=== PATIENT | male | born 1945 | race African-American/Black ===

== ENCOUNTER → 2017-01-17 | Outpatient (CLI) | payer MEDICARE, MEDICAID ==
[~2017-01-17] MED LIST: ASPI81 PO; LISI-661 PO; SIMV-260 PO
== END | disposition home or self-care (01) ==
LOC: RADPV 11:30
PROVIDERS: ATTEND Internal Medicine
DX: I70.0 Atherosclerosis of aorta (principal)
CPT/HCPCS: 71020

== ENCOUNTER → 2017-01-27 | Outpatient (CLI) | payer MEDICARE, MEDICAID | END | disposition home or self-care (01) | LOC: RADPV 15:21 | PROVIDERS: ATTEND Internal Medicine | DX: I35.8 Other nonrheumatic aortic valve disorders (principal) | CPT/HCPCS: 93306 ==

== ENCOUNTER → 2017-02-05 | Outpatient (CLI) | payer MEDICARE, MEDICAID | END | disposition home or self-care (01) | LOC: RADPV 14:12 | PROVIDERS: ATTEND Internal Medicine | DX: M47.812 Spondylosis without myelopathy or radiculopathy, cervical region (principal) | CPT/HCPCS: 72040 ==

== ENCOUNTER 2018-11-15 17:58 | Inpatient (IN) | payer MEDICAID, MEDICARE ==
[~2018-11-15] VITALS: Ht 177.8 cm; Wt 66.5 kg
[2018-11-15 18:24] LABS: BASOPHILS % (AUTO) 0.3 % (0.0-2.0); EOSINOPHILS % (AUTO) 2.4 % (1.0-6.0); HEMATOCRIT 34.8 % (41-53); LYMPHOCYTES # (AUTO) 1.8 K/uL (1.0-4.8); LYMPHOCYTES % (AUTO) 30.3 % (22.0-44.0); MEAN CORPUSCULAR HEMOGLOBIN 28.7 pg (26.0-34.0); MEAN CORPUSCULAR HGB CONC 31.7 G/dL (31.0-37.0); MEAN CORPUSCULAR VOLUME 91 fL (80-100); MONOCYTES # (AUTO) 0.4 K/uL (0.1-1.0); MONOCYTES % (AUTO) 7.6 % (2.0-9.0); NEUTROPHILS # (AUTO) 3.5 K/uL (1.8-7.7); NEUTROPHILS % (AUTO) 59.4 % (40.0-70.0); PLATELET COUNT (AUTO) 125 K/uL (150-450); RED BLOOD CELL COUNT(AUTO) 3.84 MIL/uL (4.50-5.90); RED CELL DISTRIBUTION WIDTH 12.5 % (11.5-14.5)
[2018-11-15 18:36] LABS: PROTHROMBIN TIME 10.3 SEC (9.4-11.6)
[2018-11-15] MEDS ORDERED: SODIUM CHLORIDE 0.9% 1,000 ML IV ONE (18:45)
[2018-11-15] MEDS ORDERED: ASPIRIN 325 MG TABLET PO ONE (18:45)
[2018-11-15 18:50] LABS: B-TYPE NATRIURETIC PEPTIDE 119 pg/mL (0-100)
[2018-11-15 18:58] LABS: ALANINE AMINOTRANSFERASE 14 U/L (12-78); ALBUMIN 3.6 g/dL (3.4-5.0); ALKALINE PHOSPHATASE 82 U/L (46-116); ANION GAP 6 mmol/L (8-16); ASPARTATE AMINOTRANSFERASE 16 U/L (15-37); BILIRUBIN,TOTAL 0.5 mg/dL (0.1-1.0); CALCIUM, TOTAL 9.2 mg/dL (8.8-10.5); CARBON DIOXIDE 30 mmol/L (22-29); CHLORIDE 106 mmol/L (98-107); CREATINE KINASE, TOTAL ONLY 80 U/L (39-308); CREATININE 1.39 mg/dL (0.60-1.30); FREE T4 (FREE THYROXINE) 1.01 ng/dL (0.76-1.46); GLUCOSE,RANDOM 79 mg/dL (70-110); POTASSIUM 3.5 mmol/L (3.5-5.1); SODIUM SERUM 142 mmol/L (136-145); THYROID STIMULATING HORMONE 1.22 uIU/mL (0.36-3.74); TOTAL PROTEIN, SERUM 7.4 g/dL (6.4-8.2)
[2018-11-15 19:02] LABS: GLOMERULAR FILTR. RATE CALC > 60 mL/min (>60)
[2018-11-15 19:17] LABS: UREA NITROGEN, BLOOD 17 mg/dL (7-18)
[2018-11-15 19:39] LABS: APPEARANCE,URINE CLEAR (CLEAR); BILIRUBIN,URINE NEGATIVE (NEGATIVE); GLUCOSE, URINE (UA) NEGATIVE (NEGATIVE); KETONES,URINE NEGATIVE (NEGATIVE); LEUKOCYTE ESTERASE ,URINE SMALL (NEGATIVE); NITRATE,URINE NEGATIVE (NEGATIVE); OCCULT BLOOD,URINE SMALL (NEGATIVE); PH,URINE 6.5 (5.0-8.0); PROTEIN,URINE NEGATIVE (NEGATIVE)
[2018-11-15] MEDS ORDERED: ONDANSETRON HCL 4 MG/2 ML VIAL IVP PRN ×2 (19:45→22:15)
[2018-11-15] MEDS ORDERED: 0.9% SODIUM CHLORIDE 10 ML SYRINGE IVP PRN ×2 (19:45→22:15)
[2018-11-15] MEDS ORDERED: ACETAMINOPHEN 325 MG TABLET PO PRN (19:45)
[2018-11-15 19:46] LABS: WBC,URINE 26-50 /HPF (0-5)
[2018-11-15 19:47] LABS: BACTERIA,URINE Few /HPF (None Seen); SQUAMOUS EPITHELIAL CELL,UR Few /LPF (None Seen)
[2018-11-15 20:04] LABS: AMPHET/METH SCREEN,URINE NEGATIVE (NEGATIVE); BARBITURATE SCREEN, URINE NEGATIVE (NEGATIVE); BENZODIAZEPINES SCREEN,URINE NEGATIVE (NEGATIVE); CANNABINOID SCREEN,URINE NEGATIVE (NEGATIVE); COCAINE SCREEN,URINE NEGATIVE (NEGATIVE); METHADONE SCREEN, URINE NEGATIVE (NEGATIVE); OPIATE SCREEN,URINE NEGATIVE (NEGATIVE); PHENCYCLIDINE SCREEN,URINE NEGATIVE (NEGATIVE)
[2018-11-15] MEDS: METOPROLOL TARTRATE 25 MG TABLET PO SCH (22:25)
[2018-11-15 22:40] VITALS: BP 185/70
[2018-11-15 23:21] VITALS: BP 152/68
[2018-11-16] MEDS ORDERED: DORZ10DR18 OU (01:20)
[2018-11-16] MEDS ORDERED: LATA7.5D OU (01:20)
[2018-11-16 05:15] VITALS: BP 155/62
[2018-11-16 05:42] LABS: BASOPHILS % (AUTO) 0.4 % (0.0-2.0); EOSINOPHILS % (AUTO) 3.4 % (1.0-6.0); HEMATOCRIT 29.6 % (41-53); HEMOGLOBIN 9.6 g/dL (13.5-17.5); LYMPHOCYTES # (AUTO) 1.9 K/uL (1.0-4.8); LYMPHOCYTES % (AUTO) 37.4 % (22.0-44.0); MEAN CORPUSCULAR HEMOGLOBIN 29.2 pg (26.0-34.0); MEAN CORPUSCULAR HGB CONC 32.3 G/dL (31.0-37.0); MEAN CORPUSCULAR VOLUME 90 fL (80-100); MONOCYTES # (AUTO) 0.4 K/uL (0.1-1.0); MONOCYTES % (AUTO) 7.6 % (2.0-9.0); NEUTROPHILS # (AUTO) 2.5 K/uL (1.8-7.7); NEUTROPHILS % (AUTO) 51.2 % (40.0-70.0); RED BLOOD CELL COUNT(AUTO) 3.27 MIL/uL (4.50-5.90); RED CELL DISTRIBUTION WIDTH 12.4 % (11.5-14.5)
[2018-11-16 06:03] LABS: ALANINE AMINOTRANSFERASE 12 U/L (12-78); ALBUMIN 2.9 g/dL (3.4-5.0); ALKALINE PHOSPHATASE 70 U/L (46-116); ANION GAP 5 mmol/L (8-16); ASPARTATE AMINOTRANSFERASE 14 U/L (15-37); BILIRUBIN,TOTAL 0.4 mg/dL (0.1-1.0); CALCIUM, TOTAL 8.4 mg/dL (8.8-10.5); CARBON DIOXIDE 28 mmol/L (22-29); CHLORIDE 109 mmol/L (98-107); CHOL/HDL RATIO 2.6 (4.2-7.3); CHOLESTEROL 118 mg/dL (131-200); CREATININE 1.21 mg/dL (0.60-1.30); GLUCOSE,RANDOM 91 mg/dL (70-110); HDL CHOLESTEROL 45 mg/dL (40-60); LDL CHOL (CALC.) 62 mg/dL (0-130); SODIUM SERUM 142 mmol/L (136-145); THYROID STIMULATING HORMONE 1.26 uIU/mL (0.36-3.74); TRIGLYCERIDES 57 mg/dL (15-150); UREA NITROGEN, BLOOD 18 mg/dL (7-18)
[2018-11-16 06:04] LABS: PLATELET COUNT (AUTO) 96 K/uL (150-450)
[2018-11-16 06:07] LABS: GLOMERULAR FILTR. RATE CALC > 60 mL/min (>60)
[2018-11-16] MEDS ORDERED: BRIM15DR2 OU (06:50)
[2018-11-16] MEDS ORDERED: HEPARIN SODIUM 25000 UNITS/D5W 250 ML IV PRN (07:54)
[2018-11-16 07:59] VITALS: BP 136/55
[2018-11-16] MEDS ORDERED: HEPARIN SODIUM,PORCINE 5,000 UNITS/ML VIAL IVP PRN ×2 (08:00)
[2018-11-16] MEDS ORDERED: HEPARIN SODIUM,PORCINE 5,000 UNITS/ML VIAL IVP ONE (08:00)
[2018-11-16 08:33] LABS: BASOPHILS % (AUTO) 0.4 % (0.0-2.0); EOSINOPHILS % (AUTO) 3.5 % (1.0-6.0); HEMATOCRIT 31.4 % (41-53); LYMPHOCYTES # (AUTO) 1.5 K/uL (1.0-4.8); LYMPHOCYTES % (AUTO) 32.2 % (22.0-44.0); MEAN CORPUSCULAR HGB CONC 31.9 G/dL (31.0-37.0); MEAN CORPUSCULAR VOLUME 91 fL (80-100); MONOCYTES # (AUTO) 0.3 K/uL (0.1-1.0); MONOCYTES % (AUTO) 6.8 % (2.0-9.0); NEUTROPHILS # (AUTO) 2.7 K/uL (1.8-7.7); NEUTROPHILS % (AUTO) 57.1 % (40.0-70.0); PLATELET COUNT (AUTO) 101 K/uL (150-450); RED BLOOD CELL COUNT(AUTO) 3.46 MIL/uL (4.50-5.90); RED CELL DISTRIBUTION WIDTH 12.4 % (11.5-14.5)
[2018-11-16 08:44] LABS: PROTHROMBIN TIME 10.3 SEC (9.4-11.6)
[2018-11-16] MEDS: SIMVASTATIN 20 MG TABLET PO SCH (08:46)
[2018-11-16] MEDS: PANTOPRAZOLE SODIUM 40 MG DR TABLET PO SCH (08:48)
[2018-11-16] MEDS: ASPIRIN 81 MG CHEWABLE TABLET PO SCH (08:48)
[2018-11-16] MEDS: METOPROLOL TARTRATE 25 MG TABLET PO SCH ×2 (08:48→22:05)
[2018-11-16] MEDS: BRIMONIDINE TARTRATE 0.1% 5 ML OPHTHALMIC SOLUTION OU SCH ×3 (08:49→22:07)
[2018-11-16] MEDS ORDERED: ENOXAPARIN SODIUM 40 MG/0.4 ML PF SYRINGE SQ SCH (09:00)
[2018-11-16] MEDS: LISINOPRIL 5 MG TABLET PO SCH (09:00)
[2018-11-16 11:46] VITALS: BP 132/58
[2018-11-16] MEDS: DORZOLAMIDE HCL 2% 10 ML OPHTHALMIC SOLUTION OU SCH ×2 (12:57→22:07)
[2018-11-16 15:28] VITALS: BP 129/57
[2018-11-16 19:47] VITALS: BP 146/64
[2018-11-16] MEDS: LATANOPROST 0.005% 2.5 ML OPHTHALMIC SOLUTION OU SCH (22:07)
[2018-11-16] MEDS: HydrALAZINE HCL 20 MG/ML VIAL IVP PRN (23:52)
[2018-11-17] VITALS (7 sets, daily range): BP systolic 107–161; BP diastolic 49–79
[2018-11-17 06:34] LABS: ANION GAP 4 mmol/L (8-16); CALCIUM, TOTAL 9.2 mg/dL (8.8-10.5); CARBON DIOXIDE 29 mmol/L (22-29); CHLORIDE 105 mmol/L (98-107); CREATINE KINASE, TOTAL ONLY 61 U/L (39-308); CREATININE 1.24 mg/dL (0.60-1.30); GLUCOSE,RANDOM 89 mg/dL (70-110); SODIUM SERUM 138 mmol/L (136-145); UREA NITROGEN, BLOOD 18 mg/dL (7-18)
[2018-11-17 06:35] LABS: GLOMERULAR FILTR. RATE CALC > 60 mL/min (>60)
[2018-11-17 06:42] LABS: B-TYPE NATRIURETIC PEPTIDE 225 pg/mL (0-100)
[2018-11-17] MEDS: DORZOLAMIDE HCL 2% 10 ML OPHTHALMIC SOLUTION OU SCH ×2 (07:54→21:48)
[2018-11-17] MEDS: LISINOPRIL 5 MG TABLET PO SCH (07:54)
[2018-11-17] MEDS: PANTOPRAZOLE SODIUM 40 MG DR TABLET PO SCH (07:54)
[2018-11-17] MEDS: SIMVASTATIN 20 MG TABLET PO SCH (07:55)
[2018-11-17] MEDS: METOPROLOL TARTRATE 25 MG TABLET PO SCH ×2 (07:55→21:47)
[2018-11-17] MEDS: ASPIRIN 81 MG CHEWABLE TABLET PO SCH (07:55)
[2018-11-17] MEDS: BRIMONIDINE TARTRATE 0.1% 5 ML OPHTHALMIC SOLUTION OU SCH ×3 (07:56→21:48)
[2018-11-17] MEDS ORDERED: DEXTROSE 5%-0.45% SODIUM CHL 1,000 ML IV ONE (19:00)
[2018-11-17] MEDS: LATANOPROST 0.005% 2.5 ML OPHTHALMIC SOLUTION OU SCH (21:48)
[2018-11-18 05:21] VITALS: BP 157/67
[2018-11-18 08:14] VITALS: BP 151/76
[2018-11-18] MEDS: SIMVASTATIN 20 MG TABLET PO SCH ×2 (09:00→16:50)
[2018-11-18] MEDS: ASPIRIN 81 MG CHEWABLE TABLET PO SCH ×2 (09:00→16:50)
[2018-11-18] MEDS: METOPROLOL TARTRATE 25 MG TABLET PO SCH ×3 (09:00→21:37)
[2018-11-18] MEDS: PANTOPRAZOLE SODIUM 40 MG DR TABLET PO SCH ×2 (09:00→16:50)
[2018-11-18] MEDS: LISINOPRIL 5 MG TABLET PO SCH ×2 (09:00→16:50)
[2018-11-18] MEDS: DORZOLAMIDE HCL 2% 10 ML OPHTHALMIC SOLUTION OU SCH ×2 (09:38→21:37)
[2018-11-18] MEDS: BRIMONIDINE TARTRATE 0.1% 5 ML OPHTHALMIC SOLUTION OU SCH ×3 (09:38→21:38)
[2018-11-18 12:09] VITALS: BP 159/68
[2018-11-18 15:38] VITALS: BP 131/79
[2018-11-18 20:13] VITALS: BP 140/63
[2018-11-18] MEDS: LATANOPROST 0.005% 2.5 ML OPHTHALMIC SOLUTION OU SCH (21:38)
[2018-11-19] VITALS (15 sets, daily range): BP systolic 103–196; BP diastolic 60–81
[2018-11-19] MEDS: PANTOPRAZOLE SODIUM 40 MG DR TABLET PO SCH (08:17)
[2018-11-19] MEDS: LISINOPRIL 5 MG TABLET PO SCH (08:17)
[2018-11-19] MEDS: METOPROLOL TARTRATE 25 MG TABLET PO SCH ×2 (08:17→21:00)
[2018-11-19] MEDS: SIMVASTATIN 20 MG TABLET PO SCH (08:17)
[2018-11-19] MEDS: ASPIRIN 81 MG CHEWABLE TABLET PO SCH (08:17)
[2018-11-19] MEDS: DORZOLAMIDE HCL 2% 10 ML OPHTHALMIC SOLUTION OU SCH ×2 (08:18→20:47)
[2018-11-19] MEDS: BRIMONIDINE TARTRATE 0.1% 5 ML OPHTHALMIC SOLUTION OU SCH ×3 (08:18→20:48)
[2018-11-19] MEDS ORDERED: NITROGLYCERIN 50 MG/D5% WATER 0 ML ONE (10:52)
[2018-11-19] MEDS ORDERED: VERAPAMIL HCL 2.5 MG/ML 2 ML VIAL ONE (10:52)
[2018-11-19] MEDS ORDERED: IOHEXOL 300 MG/ML 150 ML VIAL ONE (10:53)
[2018-11-19] MEDS ORDERED: IOHEXOL 300 MG/ML 100 ML VIAL ONE (10:53)
[2018-11-19] MEDS ORDERED: LIDOCAINE/PF 1% 30 ML VIAL ONE (10:53)
[2018-11-19] MEDS ORDERED: SODIUM BICARBONATE 50 MEQ/50 ML VIAL ONE (10:53)
[2018-11-19] MEDS ORDERED: HEPARIN SODIUM 1000 UNITS/NS 1,000 ML ONE (10:54)
[2018-11-19] MEDS ORDERED: FentaNYL CITRATE-PF 100 MCG/2 ML VIAL ONE (11:35)
[2018-11-19] MEDS ORDERED: MIDAZOLAM HCL 2 MG/2 ML VIAL ONE (11:36)
[2018-11-19] MEDS ORDERED: SODIUM CHLORIDE 0.9% 500 ML IV ONE (11:40)
[2018-11-19] MEDS ORDERED: MIDAZOLAM HCL 2 MG/2 ML VIAL IVP ONE (11:41)
[2018-11-19] MEDS ORDERED: FentaNYL CITRATE-PF 100 MCG/2 ML VIAL IVP ONE (11:41)
[2018-11-19] MEDS ORDERED: LIDOCAINE 1% 30 ML/SOD BICARB 8.4% 4 ML SQ ONE (11:42)
[2018-11-19] MEDS ORDERED: HEPARIN SODIUM 1000 UNITS/NS 1,000 ML IARTER ONE (11:43)
[2018-11-19] MEDS ORDERED: IOHEXOL 300 MG/ML 150 ML VIAL IARTER ONE (11:46)
[2018-11-19] MEDS ORDERED: ACETAMINOPHEN 325 MG TABLET PO ONE (16:30)
[2018-11-19] MEDS: LATANOPROST 0.005% 2.5 ML OPHTHALMIC SOLUTION OU SCH (20:48)
[2018-11-19] MEDS: HydrALAZINE HCL 20 MG/ML VIAL IVP PRN (23:55)
[2018-11-20 00:45] VITALS: BP 138/66
[2018-11-20 05:08] VITALS: BP 144/65
[2018-11-20 07:41] VITALS: BP 152/78
[2018-11-20] MEDS: ASPIRIN 81 MG CHEWABLE TABLET PO SCH (08:34)
[2018-11-20] MEDS: BRIMONIDINE TARTRATE 0.1% 5 ML OPHTHALMIC SOLUTION OU SCH ×2 (08:34→15:44)
[2018-11-20] MEDS: DORZOLAMIDE HCL 2% 10 ML OPHTHALMIC SOLUTION OU SCH (08:34)
[2018-11-20] MEDS: METOPROLOL TARTRATE 25 MG TABLET PO SCH (08:34)
[2018-11-20] MEDS: PANTOPRAZOLE SODIUM 40 MG DR TABLET PO SCH (08:35)
[2018-11-20] MEDS: LISINOPRIL 5 MG TABLET PO SCH (08:35)
[2018-11-20] MEDS: SIMVASTATIN 20 MG TABLET PO SCH (08:35)
[2018-11-20 11:06] VITALS: BP 145/62
[2018-11-20] MEDS ORDERED: METO25 PO (14:18)
[2018-11-20] MEDS ORDERED: LISI-660 PO (14:19)
[2018-11-20 15:41] VITALS: BP 148/62
== END 2018-11-20 15:50 | disposition home or self-care (01) | DRG 286 ==
LOC: EMS 17:58 → 5S 20:29
PROVIDERS: ADMIT Internal Medicine; ATTEND Internal Medicine
PROC: 4A023N7 Measurement of Cardiac Sampling and Pressure, Left Heart, Percutaneous Approach (ICD-10-PCS; principal; 2018-11-19)
PROC: B2111ZZ Fluoroscopy of Multiple Coronary Arteries using Low Osmolar Contrast (ICD-10-PCS; 2018-11-19)
PROC: B2151ZZ Fluoroscopy of Left Heart using Low Osmolar Contrast (ICD-10-PCS; 2018-11-19)
PROC: B41F1ZZ Fluoroscopy of Right Lower Extremity Arteries using Low Osmolar Contrast (ICD-10-PCS; 2018-11-19)
DX: I48.0 Paroxysmal atrial fibrillation (principal); I50.31 Acute diastolic (congestive) heart failure; I11.0 Hypertensive heart disease with heart failure; D64.9 Anemia, unspecified; E78.00 Pure hypercholesterolemia, unspecified; D69.6 Thrombocytopenia, unspecified; E78.5 Hyperlipidemia, unspecified; I42.2 Other hypertrophic cardiomyopathy
CPT/HCPCS: 83735; 84439; 84443; 87086; 93005; 93306; G0378; G0480; J0360; J1644; J2250; J3010; J3490; J7030; Q9967

== ENCOUNTER 2023-08-05 11:34 | Inpatient (IN) | payer MEDICARE ==
[~2023-08-05] VITALS: Ht 177.8 cm; Wt 63.6 kg
[~2023-08-05 11:34] MED LIST changes: +ASPI-1450 PO; -ASPI81 PO; +BRIM15DR2 OU; +DORZ10DR18 OU; +LATA7.5D OU; -LISI-661 PO; +LISI-892 PO; +METO25 PO
[2023-08-05] MEDS ORDERED: EPINEPHrine 1:1,000 [1 MG/ML] VIAL IM ONE (11:45)
[2023-08-05] MEDS ORDERED: ROSU20TA73 PO (11:54)
[2023-08-05] MEDS ORDERED: CARV12.530 PO (11:54)
[2023-08-05] MEDS ORDERED: LATA2.5D14 OU (11:54)
[2023-08-05] MEDS ORDERED: TAMS0.4C94 PO (11:54)
[2023-08-05] MEDS: DiphenhydrAMINE HCL 50 MG/ML VIAL IVP ONE (11:55)
[2023-08-05] MEDS: MethylPREDNISolone SOD SUCC 125 MG/2 ML VIAL IVP ONE (11:55)
[2023-08-05] MEDS: FAMOTIDINE 20 MG/2 ML VIAL IVP ONE (11:55)
[2023-08-05 12:07] LABS: BASOPHILS % (AUTO) 0.4 % (0.0-2.0); HEMATOCRIT 36.2 % (41-53); HEMOGLOBIN 11.7 g/dL (13.5-17.5); LYMPHOCYTES # (AUTO) 1.4 K/uL (1.0-4.8); MEAN CORPUSCULAR HEMOGLOBIN 29.1 pg (26.0-34.0); MEAN CORPUSCULAR HGB CONC 32.4 G/dL (31.0-37.0); MEAN CORPUSCULAR VOLUME 90 fL (80-100); MONOCYTES # (AUTO) 0.4 K/uL (0.1-1.0); MONOCYTES % (AUTO) 7.3 % (2.0-9.0); NEUTROPHILS # (AUTO) 4.1 K/uL (1.8-7.7); NEUTROPHILS % (AUTO) 67.3 % (40.0-70.0); PLATELET COUNT (AUTO) 114 K/uL (150-450); RED BLOOD CELL COUNT(AUTO) 4.04 MIL/uL (4.50-5.90); RED CELL DISTRIBUTION WIDTH 12.7 % (11.5-14.5)
[2023-08-05] MEDS: HydrALAZINE HCL 20 MG/ML VIAL IVP ONE ×2 (12:16→13:05)
[2023-08-05 12:17] LABS: ANION GAP 9 mmol/L (8-16); CALCIUM, TOTAL 9.3 mg/dL (8.8-10.5); CARBON DIOXIDE 28 mmol/L (22-29); CHLORIDE 103 mmol/L (98-107); CREATININE 1.24 mg/dL (0.60-1.30); GLOMERULAR FILTR. RATE CALC > 60 mL/min (>60); GLUCOSE,RANDOM 100 mg/dL (70-110); POTASSIUM 4.1 mmol/L (3.5-5.1); SODIUM SERUM 140 mmol/L (136-145); UREA NITROGEN, BLOOD 22 mg/dL (7-18)
[2023-08-05 12:25] LABS: TROPONIN I-HIGH SENSITIVITY 25 ng/L (<76)
[2023-08-05 12:29] LABS: B-TYPE NATRIURETIC PEPTIDE 112 pg/mL (0-100)
[2023-08-05 12:42] LABS: ALANINE AMINOTRANSFERASE 18 U/L (12-78); ALBUMIN 3.7 g/dL (3.4-5.0); ALKALINE PHOSPHATASE 90 U/L (46-116); ASPARTATE AMINOTRANSFERASE 18 U/L (15-37); BILIRUBIN,TOTAL 0.7 mg/dL (0.1-1.0); CREATINE KINASE, TOTAL ONLY 75 U/L (39-308); TOTAL PROTEIN, SERUM 7.8 g/dL (6.4-8.2)
[2023-08-05] MEDS ORDERED: CloNIDine HCL 0.1 MG TABLET PO PRN (13:15)
[2023-08-05] MEDS ORDERED: ACETAMINOPHEN 325 MG TABLET PO PRN (13:30)
[2023-08-05] MEDS ORDERED: MAGNESIUM HYDROXIDE SUSPENSION 30 ML UDCUP PO PRN (13:30)
[2023-08-05] MEDS ORDERED: ONDANSETRON HCL 4 MG/2 ML VIAL IVP PRN (13:30)
[2023-08-05] MEDS: AmLODIPine BESYLATE 10 MG TABLET PO SCH (14:41)
[2023-08-05 15:11] LABS: APPEARANCE,URINE CLEAR (CLEAR); BILIRUBIN,URINE NEGATIVE (NEGATIVE); COLOR,URINE COLORLESS (YELLOW); GLUCOSE, URINE (UA) NEGATIVE (NEGATIVE); KETONES,URINE NEGATIVE (NEGATIVE); LEUKOCYTE ESTERASE ,URINE NEGATIVE (NEGATIVE); NITRATE,URINE NEGATIVE (NEGATIVE); OCCULT BLOOD,URINE NEGATIVE (NEGATIVE); PH,URINE 7.5 (5.0-8.0); PH,URINE DRUG SCREEN 7.5 (5.0-8.0); PROTEIN,URINE NEGATIVE (NEGATIVE); SPECIFIC GRAVITIY, URINE 1.006 (1.003-1.030); UROBILINOGEN,URINE <=1.0 mg/dL (<=1.0)
[2023-08-05 15:14] LABS: ALCOHOL, URINE DRUG SCREEN NEGATIVE (NEGATIVE); AMPHET/METH SCREEN,URINE NEGATIVE (NEGATIVE); BARBITURATE SCREEN, URINE NEGATIVE (NEGATIVE); BENZODIAZEPINES SCREEN,URINE NEGATIVE (NEGATIVE); CANNABINOID SCREEN,URINE NEGATIVE (NEGATIVE); COCAINE SCREEN,URINE NEGATIVE (NEGATIVE); METHADONE SCREEN, URINE NEGATIVE (NEGATIVE); OPIATE SCREEN,URINE NEGATIVE (NEGATIVE); PHENCYCLIDINE SCREEN,URINE NEGATIVE (NEGATIVE)
[2023-08-05] MEDS: HEPARIN SODIUM,PORCINE 5,000 UNITS/ML VIAL SQ SCH (15:34)
[2023-08-05] MEDS: DOCUSATE SODIUM 100 MG CAPSULE PO SCH (21:00)
[2023-08-05] MEDS: CHLORHEXIDINE GLUCONATE 2% TOWELETTE [2'S/6'S] TP SCH (22:25)
[2023-08-06] VITALS: BP 158/68; PULSE 86; PULSE 87; RESP 23; TEMP 97.9
[2023-08-06 04:00] VITALS: BP 143/62; PULSE 86; PULSE 87; RESP 26; TEMP 97.5
[2023-08-06 05:46] LABS: EOSINOPHILS % (AUTO) 0 % (1.0-6.0); HEMATOCRIT 37.1 % (41-53); HEMOGLOBIN 12.2 g/dL (13.5-17.5); LYMPHOCYTES % (AUTO) 11.7 % (22.0-44.0); MEAN CORPUSCULAR HEMOGLOBIN 29.1 pg (26.0-34.0); MEAN CORPUSCULAR HGB CONC 32.8 G/dL (31.0-37.0); MEAN CORPUSCULAR VOLUME 89 fL (80-100); MONOCYTES # (AUTO) 0.3 K/uL (0.1-1.0); MONOCYTES % (AUTO) 3.5 % (2.0-9.0); NEUTROPHILS % (AUTO) 84.8 % (40.0-70.0); PLATELET COUNT (AUTO) 113 K/uL (150-450); RED BLOOD CELL COUNT(AUTO) 4.18 MIL/uL (4.50-5.90); RED CELL DISTRIBUTION WIDTH 12.7 % (11.5-14.5); WHITE BLOOD COUNT (AUTO) 8.3 K/uL (4.5-11.0)
[2023-08-06 05:48] LABS: ANION GAP 10 mmol/L (8-16); CALCIUM, TOTAL 9.1 mg/dL (8.8-10.5); CARBON DIOXIDE 26 mmol/L (22-29); CHLORIDE 102 mmol/L (98-107); CREATININE 1.08 mg/dL (0.60-1.30); GLOMERULAR FILTR. RATE CALC > 60 mL/min (>60); GLUCOSE,RANDOM 120 mg/dL (70-110); POTASSIUM 3.9 mmol/L (3.5-5.1); SODIUM SERUM 138 mmol/L (136-145); UREA NITROGEN, BLOOD 20 mg/dL (7-18)
[2023-08-06 08:00] VITALS: BP 159/72; PULSE 82; RESP 12; TEMP 97.4
[2023-08-06] MEDS ORDERED: AMLO-258 PO (08:29)
[2023-08-06] MEDS: FAMOTIDINE 20 MG TABLET PO SCH (08:36)
== END 2023-08-06 12:35 | disposition home or self-care (01) | DRG 916 ==
LOC: EMS 13:33 → ICUN 17:11 → ICU 19:13
PROVIDERS: ADMIT Internal Medicine; ATTEND Internal Medicine
DX: T78.3XXA Angioneurotic edema, initial encounter (principal); I16.1 Hypertensive emergency; E78.00 Pure hypercholesterolemia, unspecified; Z20.822 Contact with and (suspected) exposure to COVID-19; I10 Essential (primary) hypertension; T46.4X5A Adverse effect of angiotensin-converting-enzyme inhibitors, initial encounter; Y83.8 Other surgical procedures as the cause of abnormal reaction of the patient, or of later complication, without mention of misadventure at the time of the procedure; Y92.89 Other specified places as the place of occurrence of the external cause
CPT/HCPCS: 71045; 80048; 80053; 80307; 81003; 82550; 83880; 84484; 85025; 87081; 93005; 99285; J0171; J0360; J1200; J1644; J2930; J3490; 36415-L1; 36415-TC